=== PATIENT | female | born 1980 | race Caucasian/White ===

== ENCOUNTER 2017-01-07 03:58 | Emergency (ER) | payer MEDICAID ==
[~2017-01-07] VITALS: Ht 170.2 cm; Wt 54.8 kg
[~2017-01-07 03:58] MED LIST: CIPR500T2 PO; SULF-154 PO; TAB-TAB PO; TYLE3 PO
[2017-01-07 04:04] VITALS: BP 104/68; PULSE 83; RESP 16; TEMP 98.2; O2SAT 100
--- NOTE | 2017-01-07 05:09 | PD ---
HPI Chief Complaint: GI Complaint Time Seen by Provider: 05:02 Travel History International Travel<30 days: No Contact w/Intl Traveler<30days: No Traveled to known affect area: No History of Present Illness HPI The patient is a 36-year-old female that complains of nausea and constipation for 1 day. She states that after the constipation she got diarrhea. The diarrhea is slight. She denies any fever or vomiting. She denies any dysuria, frequency or urgency. She denies any cough or sore throat. PFSH Past Medical History Diminished Hearing: No Genitourinary: Yes (BARTHOLIN CYST; HERPES) Reproductive: Yes (HERPES, REPEAT BARTHOLIN CYST) Influenza Vaccination: No ?: Unknown LMP: 12/21/16 : 2 Para: 2 Miscarriage: 0 : 0 Past Surgical History Surgical History: No Previous Surgery Eye Surgery: Yes ( A CHILD) Social History Alcohol Use: No Tobacco Use: Yes (1 ppd) Substance Use: No Allergies-Medications (Allergen,Severity, Reaction): Coded Allergies: No Known Allergies (Verified , 01/07/17) Reported Meds & Prescriptions Reported Meds & Active Scripts Active Review of Systems Except as stated in HPI: all other systems reviewed are Neg Physical Exam Narrative GENERAL: The patient is alert, oriented 3, mildly dehydrated appearing and in no apparent distress. Her vital signs are normal. SKIN: Focused skin assessment warm/dry. HEAD: Atraumatic. Normocephalic. EYES: Pupils equal and round. No scleral icterus. No injection or drainage. ENT: No nasal bleeding or discharge. Mucous membranes pink and moist. NECK: Trachea midline. No JVD. CARDIOVASCULAR: Regular rate and rhythm. No murmur appreciated. RESPIRATORY: No accessory muscle use. Clear to auscultation. Breath sounds equal bilaterally. GASTROINTESTINAL: Abdomen soft, non-tender, nondistended. Hepatic and splenic margins not palpable. No guarding or rebound is present. MUSCULOSKELETAL: No obvious deformities. No clubbing. No cyanosis. No edema. NEUROLOGICAL: Awake and alert. No obvious cranial nerve deficits. Motor grossly within normal limits. Normal speech. PSYCHIATRIC: Appropriate mood and affect; insight and judgment normal. Data Data Last Documented VS Vital Signs Date Time Temp Pulse Resp B/P Pulse Ox O2 Delivery O2 Flow Rate FiO2 01/07/17 04:04 98.2 83 16 104/68 100 Room Air Orders Ondansetron Inj (Zofran Inj) (01/07/17 05:15) Sodium Chlor 0.9% 1000 Ml Inj (Ns 1000 M (01/07/17 05:15) Beta Hcg (Quant/Titer) (01/07/17 05:04) Complete Blood Count With Diff (01/07/17 05:04) Comprehensive Metabolic Panel (01/07/17 05:04) Lipase (01/07/17 05:04) Urinalysis - C+S If Indicated (01/07/17 05:04) Iv Access Insert/Monitor (01/07/17 05:04) Ecg Monitoring (01/07/17 05:04) Oximetry (01/07/17 05:04) Sodium Chloride 0.9% Flush (Ns Flush) (01/07/17 05:15) Labs Laboratory Tests Test 01/07/17 05:20 White Blood Count 4.3 TH/MM3 Red Blood Count 4.58 MIL/MM3 Hemoglobin 14.4 GM/DL Hematocrit 41.4 % Mean Corpuscular Volume 90.5 FL Mean Corpuscular Hemoglobin 31.6 PG Mean Corpuscular Hemoglobin 34.9 % Concent Red Cell Distribution Width 12.6 % Platelet Count 191 TH/MM3 Mean Platelet Volume 8.6 FL Neutrophils (%) (Auto) 57.4 % Lymphocytes (%) (Auto) 31.0 % Monocytes (%) (Auto) 9.4 % Eosinophils (%) (Auto) 1.3 % Basophils (%) (Auto) 0.9 % Neutrophils # (Auto) 2.5 TH/MM3 Lymphocytes # (Auto) 1.3 TH/MM3 Monocytes # (Auto) 0.4 TH/MM3 Eosinophils # (Auto) 0.1 TH/MM3 Basophils # (Auto) 0.0 TH/MM3 CBC Comment DIFF FINAL Differential Comment Urine Color YELLOW Urine Turbidity CLEAR Urine pH 6.0 Urine Specific [place] 1.020 Urine Protein NEG mg/dL Urine Glucose (UA) NEG mg/dL Urine Ketones NEG mg/dL Urine Occult Blood NEG Urine Nitrite NEG Urine Bilirubin NEG Urine Leukocyte Esterase NEG Urine RBC 0-2 /hpf Urine WBC 3-5 /hpf Urine Squamous Epithelial 6-8 /hpf Cells Urine Bacteria OCC /hpf Microscopic Urinalysis Comment CULT NOT INDICATED Sodium Level 143 MEQ/L Potassium Level 3.7 MEQ/L Chloride Level 108 MEQ/L Carbon Dioxide Level 27.7 MEQ/L Anion Gap 7 MEQ/L Blood Urea Nitrogen 11 MG/DL Creatinine 0.78 MG/DL Estimat Glomerular Filtration 85 ML/MIN Rate Random Glucose 103 MG/DL Calcium Level 8.9 MG/DL Total Bilirubin 1.0 MG/DL Aspartate Amino Transf 17 U/L (AST/SGOT) Alanine Aminotransferase 29 U/L (ALT/SGPT) Alkaline Phosphatase 56 U/L Total Protein 6.9 GM/DL Albumin 3.8 GM/DL Lipase 249 U/L Human Chorionic Gonadotropin, LESS THAN 1 Quant MIU/ML MDM Medical Decision Making Medical Screen Exam Complete: Yes Emergency Medical Condition: Yes Medical Record Reviewed: Yes Interpretation(s) The CBC is normal, the white count is only 4300. The complete metabolic profile shows a GFR of 85 but is otherwise normal. The lipase is normal and the beta-hCG is less than 1. The urinalysis is normal and culture is not indicated. Differential Diagnosis Gastroenteritis, appendicitisunlikely, cholecystitisunlikely, electrolyte disorder, dehydration, urinary tract infection, pancreatitis Narrative Course It is now 0610 and the patient has no nausea and is drinking Gatorade successfully. The patient appears to have gastroenteritis. I believe she is early on her course of illness and will possibly get worse as the gastroenteritis progresses. Nevertheless, she is able to hold liquids down and she will be given Phenergan for nausea and a 5 day work excuse. 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 Diagnosis Primary Impression: Gastroenteritis Additional Impression: Mild dehydration Additional Instructions: Take the Phenergan regularly, 1 tablet every 6 hours for the first 24 hours. Drink clear liquids like Gatorade/Pedialyte and then add Jell-O, applesauce and some fruit juices. Stay away from fatty foods as long as you can. Fatty foods or the hardest to digest and cause the most nausea. Med/Other Pt SpecificInfo: Prescription(s) given Scripts Promethazine (Phenergan)25 Mg Tab25 Mg PO Q6H PRN (Nausea/Vomiting) #28 TAB Ref 0 Prov:Chicho Blandon MD 01/07/17 Disposition: 01 DISCHARGE HOME Condition: Stable Chicho Blandon MD Jan 07, 2017 05:09
[2017-01-07] MEDS ORDERED: SODIUM CHLORIDE 0.9% FLUSH 10 ML FLUSH IV FLUSH PRN (05:15)
[2017-01-07] MEDS ORDERED: ONDANSETRON HCL 4 MG/2 ML VIAL IV ONE (05:15)
[2017-01-07] MEDS: SODIUM CHLOR 0.9% 1000 ML INJ 1,000 ML IV SCH ×2 (05:23→06:01)
[2017-01-07 05:27] LABS: BLOOD, URINE NEG (NEG); GLUCOSE,URINE NEG (NEG); KETONE, URINE NEG (NEG); NITRITE,URINE NEG (NEG)
[2017-01-07 05:29] LABS: AUTOMATED NEUTROPHIL # 2.5 TH/MM3 (1.8-7.7); BASOPHIL % 0.9 % (0.0-2.0); EOSINOPHIL # 0.1 TH/MM3 (0-0.4); EOSINOPHIL % 1.3 % (0.0-4.0); HEMATOCRIT 41.4 % (35.0-46.0); HEMO FLAGS DIFF FINAL; LYMPHOCYTE # 1.3 TH/MM3 (1.0-4.8); MEAN CELL VOLUME 90.5 FL (80.0-100.0); MEAN CORPUSCULAR HEMOGLOBIN 31.6 PG (27.0-34.0); MEAN CORPUSCULAR HGB CONC 34.9 % (32.0-36.0); MONO % 9.4 % (0.0-8.0); NEUT % 57.4 % (16.0-70.0); PLATELET COUNT 191 TH/MM3 (150-450); RED BLOOD COUNT 4.58 MIL/MM3 (4.00-5.30); RED CELL DISTRIBUTION WIDTH 12.6 % (11.6-17.2); WHITE BLOOD COUNT 4.3 TH/MM3 (4.0-11.0)
[2017-01-07 05:31] LABS: BACTERIA, URINE OCC /hpf; RBC, URINE 0-2 /hpf (0-3); URINE COLOR YELLOW (YELLW/STRAW)
[2017-01-07 05:32] LABS: COMMENT (UR) CULT NOT INDICATED; CULTURE IF INDICATED CULT NOT INDICATED
[2017-01-07 05:36] LABS: CHLORIDE 108 MEQ/L (98-107); POTASSIUM 3.7 MEQ/L (3.5-5.1); SODIUM (NA) 143 MEQ/L (136-145)
[2017-01-07 05:40] LABS: ANION GAP 7 MEQ/L (5-15); BICARBONATE 27.7 MEQ/L (21.0-32.0); BLOOD UREA NITROGEN 11 MG/DL (7-18)
[2017-01-07 05:43] LABS: ALT (GPT) 29 U/L (10-53); AST (GOT) 17 U/L (15-37); GLOMERULAR FILTRATION RATE 85 ML/MIN (>89)
[2017-01-07 05:45] LABS: ALKALINE PHOSPHATASE 56 U/L (45-117)
[2017-01-07 05:48] LABS: BETA HCG QUANT LESS THAN 1 MIU/ML (0-5)
[2017-01-07] MEDS ORDERED: PROM25TA5 PO (06:13)
[2017-01-07 06:31] VITALS: BP 109/73; PULSE 90; O2SAT 100
== END 2017-01-07 06:40 | disposition home or self-care (01) ==
LOC: PHED 03:58
DX: K52.9 Noninfective gastroenteritis and colitis, unspecified (principal); E86.0 Dehydration; F17.210 Nicotine dependence, cigarettes, uncomplicated
CPT/HCPCS: 80053; 81001; 83690; 84702; 85025; 96361; 96374; 99283; J2405; J7030

== ENCOUNTER 2017-02-09 05:45 | Emergency (ER) | payer MEDICAID ==
[~2017-02-09] VITALS: Ht 167.6 cm; Wt 55.7 kg
[~2017-02-09 05:45] MED LIST changes: -CIPR500T2 PO; +PROM25TA5 PO; -SULF-154 PO; -TAB-TAB PO; -TYLE3 PO
[2017-02-09 05:56] VITALS: BP 124/70; PULSE 84; RESP 16; TEMP 98.4; O2SAT 99
[2017-02-09] MEDS ORDERED: DIFL150T PO (06:28)
--- NOTE | 2017-02-09 06:28 | PD ---
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 She says she had "rough sex" and then started having the itching Tuesday. She has not noticed any discharge. She denies any burning with urination. She denies abdominal pain, nausea, vomiting, or fevers. PFSH Past Medical History Diminished Hearing: No Genitourinary: Yes (BARTHOLIN CYST; HERPES) Reproductive: Yes (HERPES, REPEAT BARTHOLIN CYST) ?: Not : 2 Para: 2 Miscarriage: 0 : 0 Past Surgical History Eye Surgery: Yes ( A CHILD) Social History Alcohol Use: No Tobacco Use: Yes (1 ppd) Substance Use: No Allergies-Medications (Allergen,Severity, Reaction): Coded Allergies: No Known Allergies (Verified , 01/07/17) Reported Meds & Prescriptions Reported Meds & Active Scripts Active Diflucan (Fluconazole) 150 Mg Tab 150 Mg PO ONCE Phenergan (Promethazine HCl) 25 Mg Tab 25 Mg PO Q6H PRN Review of Systems General / Constitutional: No: Fever, Chills HENT: No: Headaches, Lightheadedness Cardiovascular: No: Chest Pain or Discomfort Respiratory: No: Shortness of Breath Gastrointestinal: No: Nausea, Vomiting, Abdominal Pain Genitourinary: No: Dysuria Skin: Positive Itching Neurologic: No: Weakness, Dizziness Physical Exam Narrative GENERAL: Awake and alert, in no acute distress. SKIN: Focused skin assessment warm/dry. HEAD: Atraumatic. Normocephalic. EYES: Pupils equal and round. No scleral icterus. ENT: Mucous membranes pink and moist. GASTROINTESTINAL: Abdomen soft, non-tender, nondistended. : Performed in the presence of a female balancer. Thick, white, curd like discharge. No cervical lesions. No CMT. NEUROLOGICAL: Awake and alert. No obvious cranial nerve deficits. Motor grossly within normal limits. Normal speech. PSYCHIATRIC: Appropriate mood and affect; insight and judgment normal. Data Data Last Documented VS Vital Signs Date Time Temp Pulse Resp B/P Pulse Ox O2 Delivery O2 Flow Rate FiO2 02/09/17 05:56 98.4 84 16 124/70 99 Orders Wet Prep Profile (02/09/17 06:13) Gc And Chlamydia Pcr (02/09/17 06:13) Ed Urine Pregnancytest Poc (02/09/17 06:13) Labs Laboratory Tests Test 02/09/17 06:15 Clue Cells (Wet Prep) PRESENT Vaginal Trichomonas (Wet Prep) NONE SEEN Vaginal Yeast (Wet Prep) NONE SEEN MDM Medical Decision Making Medical Screen Exam Complete: Yes Emergency Medical Condition: Yes Medical Record Reviewed: Yes Differential Diagnosis BV vs yeast infection vs skin irritation Narrative Course Patient is a 36 year old female who comes in complaining of vaginal itching. Exam shows thick white discharge, consistent with yeast infection. Swab sent for wet prep and gc/chlamydia. Will discharge with diflucan. Advised to follow up with computer security specialist. Advised to return to the ED as needed for any worsening symptoms. Diagnosis Primary Impression: Yeast vaginitis Patient Instructions: Bacterial Vaginosis (ED), General Instructions, Vulvovaginal Candidiasis (ED) Additional Instructions: Follow up with computer security specialist. Return to the ED as needed for any worsening symptoms. Do not drink alcohol while taking the antibiotic as you will become violently ill. Wait and take the Diflucan when you have finished the antibiotics. Scripts Metronidazole (Flagyl)500 Mg [id number] Mg PO BID 7 Days Ref 0 Prov:Jeannine Fernandez MD 02/09/17 Fluconazole (Diflucan)150 Mg [id number] Mg PO ONCE #1 TAB Ref 0 Prov:Jeannine Fernandez MD 02/09/17 Disposition: 01 DISCHARGE HOME Condition: Stable Jeannine Fernandez MD February 09, 2017 06:28
[2017-02-09] MEDS ORDERED: METR-1 PO (06:40)
[2017-02-09 10:39] LABS: CHLAMYDIA PCR NOT DETECTED (NOT DETECT); NEISSERIA PCR NOT DETECTED (NOT DETECT)
== END 2017-02-09 06:48 | disposition home or self-care (01) ==
LOC: PHED 05:45
DX: B37.3 Candidiasis of vulva and vagina (principal); F17.200 Nicotine dependence, unspecified, uncomplicated
CPT/HCPCS: 84703; 87210; 87491; 87591; 99283

== ENCOUNTER 2017-03-11 10:03 | Emergency (ER) | payer MEDICAID ==
[~2017-03-11] VITALS: Ht 170.2 cm; Wt 55.6 kg
[~2017-03-11 10:03] MED LIST changes: +DIFL150T PO; +METR-1 PO
[2017-03-11 10:18] VITALS: BP 115/66; PULSE 72; RESP 16; TEMP 98.8; O2SAT 99
[2017-03-11] MEDS ORDERED: DIFL150T PO (11:03)
--- NOTE | 2017-03-11 11:03 | PD ---
HPI . 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 She complains of vaginal itching and a thick, white discharge. The patient reports frequent problems with yeast infections. 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 As no known history of diabetes. She states that she used to use [id number] yeast medications with relief but that they have stopped working. The patient describes her current symptoms as mild and states that she has no pain. PFSH Past Medical History Diminished Hearing: No Genitourinary: Yes (BARTHOLIN CYST; HERPES) Reproductive: Yes (HERPES, REPEAT BARTHOLIN CYST) Tetanus Vaccination: > 5 Years Influenza Vaccination: No ?: Not LMP: 02/24/17 : 2 Para: 2 Miscarriage: 0 : 0 Past Surgical History Eye Surgery: Yes ( A CHILD) Social History Alcohol Use: No Tobacco Use: Yes (1 ppd) Substance Use: No Allergies-Medications (Allergen,Severity, Reaction): Coded Allergies: No Known Allergies (Verified , 03/11/17) Reported Meds & Prescriptions Reported Meds & Active Scripts Active No Active Prescriptions or Reported Medications Review of Systems Except as stated in HPI: all other systems reviewed are Neg Genitourinary: Positive: Discharge Physical Exam Narrative GENERAL: Awake and alert and in no acute distress. SKIN: Warm and dry. HEAD: Atraumatic. Normocephalic. EYES: Pupils equal and round. NECK: Trachea midline. CARDIOVASCULAR: Regular rate and rhythm. RESPIRATORY: No accessory muscle use. : External genitalia is erythematous with a thick, white, cottage cheese appearing discharge. MUSCULOSKELETAL: No obvious deformities. No edema. NEUROLOGICAL: Awake and alert. No obvious cranial nerve deficits. Motor grossly within normal limits. Normal speech. PSYCHIATRIC: Appropriate mood and affect; insight and judgment normal. Data Data Last Documented VS Vital Signs Date Time Temp Pulse Resp B/P Pulse Ox O2 Delivery O2 Flow Rate FiO2 03/11/17 10:18 98.8 72 16 115/66 99 MDM Medical Decision Making Medical Screen Exam Complete: Yes Emergency Medical Condition: Yes Differential Diagnosis Differential diagnosis of vaginal discharge includes but is not limited to physiologic discharge, yeast infection, bacterial vaginosis, sexually transmitted disease. Narrative Course Patient presents complaining with a yeast infection. She reports numerous previous similar episodes. She does not believe that formal testing is necessary today. I agree. Diagnosis Primary Impression: Yeast vaginitis Patient Instructions: General Instructions, Vaginitis (ED) Med/Other Pt SpecificInfo: Prescription(s) given Scripts Fluconazole (Diflucan)150 Mg [id number] Mg PO ONCE #10 TAB Ref 0 Prov:Verito Storey MD 03/11/17 Disposition: 01 DISCHARGE HOME Condition: Stable Verito Storey MD Mar 11, 2017 11:03
== END 2017-03-11 11:13 | disposition home or self-care (01) ==
LOC: PHED 10:03
DX: B37.3 Candidiasis of vulva and vagina (principal)
CPT/HCPCS: 99283

== ENCOUNTER 2017-08-29 15:25 | Emergency (ER) | payer MEDICAID, OTHER ==
[~2017-08-29] VITALS: Ht 167.6 cm; Wt 56.0 kg
[~2017-08-29 15:25] MED LIST changes: -METR-1 PO; -PROM25TA5 PO
[2017-08-29 15:36] VITALS: BP 114/66; PULSE 87; RESP 16; TEMP 98.2; O2SAT 96
[2017-08-29] MEDS ORDERED: AUGM875T3 PO (16:31)
--- NOTE | 2017-08-29 16:32 | PD ---
HPI Chief Complaint: Oral / Dental Pain or Problem Time Seen by Provider: 16:05 Travel History International Travel<30 days: No Contact w/Intl Traveler<30days: No Traveled to known affect area: No History of Present Illness HPI 37 year old female with left sided dental pain and facial swelling 1 day. Patient has widespread dental decay. Frequent dental infections in the past. She denies fever or chills. Symptom severity is mild. No aggravating or alleviating factors. PFSH Past Medical History Medical History: Denies Significant Hx Diminished Hearing: No Genitourinary: Yes (BARTHOLIN CYST; HERPES) Reproductive: Yes (HERPES, REPEAT BARTHOLIN CYST) ?: Not LMP: 08/28/2017 : 2 Para: 2 Miscarriage: 0 : 0 Past Surgical History Eye Surgery: Yes ( A CHILD) Social History Alcohol Use: No Tobacco Use: Yes (1 ppd) Substance Use: No Allergies-Medications (Allergen,Severity, Reaction): Coded Allergies: doxycycline (Verified Allergy, Intermediate, HIVES, 08/29/17) Reported Meds & Prescriptions Reported Meds & Active Scripts Active Diflucan (Fluconazole) 150 Mg Tab 150 Mg PO ONCE Review of Systems Except as stated in HPI: all other systems reviewed are Neg General / Constitutional: No: Fever Physical Exam Narrative GENERAL: Alert well-appearing female SKIN: Warm and dry. HEAD: Normocephalic. Mild left-sided facial swelling EYES: No scleral icterus. No injection or drainage. NECK: Supple, trachea midline. No JVD or lymphadenopathy. MOUTH: Widespread dental decay. Tenderness and swelling of the left upper gum. Data Data Last Documented VS Vital Signs Date Time Temp Pulse Resp B/P (MAP) Pulse Ox O2 Delivery O2 Flow Rate FiO2 08/29/17 15:36 98.2 87 16 114/66 (82) 96 MDM Medical Decision Making Medical Screen Exam Complete: Yes Emergency Medical Condition: Yes Differential Diagnosis Dental abscess, dental infection, dental caries Narrative Course 37-year-old female old female with left-sided dental pain and facial swelling 1 day. Patient is nontoxic-appearing. She has widespread dental decay. She will be treated for dental infection. Diagnosis Primary Impression: Dental abscess Referrals: Dentist Scripts Amoxicillin-Clavulanate (Augmentin) 875-125 Mg Tab 1 TAB PO BID for Infection, #20 TAB 0 Refills Prov: Farrah Angeles 08/29/17 Disposition: 01 DISCHARGE HOME Condition: Stable Farrah Angeles Aug 29, 2017 16:32
== END 2017-08-29 16:41 | disposition home or self-care (01) ==
LOC: PHEFT 15:25
DX: K04.7 Periapical abscess without sinus (principal); K02.9 Dental caries, unspecified; F17.200 Nicotine dependence, unspecified, uncomplicated
CPT/HCPCS: 99283

== ENCOUNTER 2017-09-04 19:32 | Emergency (ER) | payer OTHER ==
[~2017-09-04] VITALS: Ht 170.2 cm; Wt 56.5 kg
[~2017-09-04 19:32] MED LIST changes: +AUGM875T3 PO
[2017-09-04 19:38] VITALS: BP 119/51; PULSE 90; RESP 16; TEMP 98.3; O2SAT 98
[2017-09-04] MEDS ORDERED: DIFL200T PO (19:54)
--- NOTE | 2017-09-04 19:55 | PD ---
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 She has had multiple yeast infections in the past and states Diflucan as worked for these. She feels confident in her diagnosis of yeast infection and would prefer not to have a pelvic exam. She denies any fever, nausea, vomiting or diarrhea. She has been on amoxicillin 5 days ago for a dental infection. The patient states there is no possibility of . She is sexually active but uses condoms. PFSH Past Medical History Diminished Hearing: No Genitourinary: Yes (BARTHOLIN CYST; HERPES) Reproductive: Yes (HERPES, REPEAT BARTHOLIN CYST) ?: Not : 2 Para: 2 Miscarriage: 0 : 0 Past Surgical History Eye Surgery: Yes ( A CHILD) Social History Alcohol Use: No Tobacco Use: Yes (1 ppd) Substance Use: No Allergies-Medications (Allergen,Severity, Reaction): Coded Allergies: doxycycline (Verified Allergy, Intermediate, HIVES, 09/04/17) Reported Meds & Prescriptions Reported Meds & Active Scripts Active Augmentin (Amoxicillin-Clavulanate) 875-125 Mg Tab 1 Tab PO BID Diflucan (Fluconazole) 150 Mg Tab 150 Mg PO ONCE Review of Systems Except as stated in HPI: all other systems reviewed are Neg Physical Exam Narrative GENERAL: Well-nourished, well-developed patient. Her vital signs are normal. SKIN: Focused skin assessment warm/dry. HEAD: Normocephalic. EYES: No scleral icterus. No injection or drainage. NECK: Supple, trachea midline. No JVD or lymphadenopathy. CARDIOVASCULAR: Regular rate and rhythm without murmurs, gallops, or rubs. RESPIRATORY: Breath sounds equal bilaterally. No accessory muscle use. GASTROINTESTINAL: Abdomen soft, non-tender, nondistended. MUSCULOSKELETAL: No cyanosis, or edema. BACK: Nontender without obvious deformity. No CVA tenderness. Data Data Last Documented VS Vital Signs Date Time Temp Pulse Resp B/P (MAP) Pulse Ox O2 Delivery O2 Flow Rate FiO2 09/04/17 19:38 98.3 90 16 119/51 (73) 98 MDM Medical Decision Making Medical Screen Exam Complete: Yes Emergency Medical Condition: Yes Medical Record Reviewed: Yes Differential Diagnosis Vaginal moniliasis, Trichomonas vaginitis, bacterial vaginosis Narrative Course The patient is confident that this is a yeast infection. She would prefer not to have a pelvic exam the possible. We will give her a prescription for Diflucan as well as some refills. She is to follow-up with her cook station. Diagnosis Primary Impression: Yeast vaginitis Additional Instructions: As we discussed, there are other causes of vaginitis besides yeast. One of these is Trichomonas. If your symptoms do not resolve with the Diflucan, you will need to follow-up with your cook station. Med/Other Pt SpecificInfo: Prescription(s) given Scripts Fluconazole (Diflucan) 200 Mg Tab 200 MG PO DAILY for Infection, #7 TAB 0 Refills Prov: Chicho Blandon MD 09/04/17 Disposition: 01 DISCHARGE HOME Condition: Stable Chicho Blandon MD Sep 04, 2017 19:55
[2017-09-04] MEDS ORDERED: FLUCONAZOLE 200 MG TAB PO ONE (20:00)
== END 2017-09-04 20:08 | disposition home or self-care (01) ==
LOC: PHED 19:32
DX: B37.3 Candidiasis of vulva and vagina (principal); Z72.0 Tobacco use
CPT/HCPCS: 99283